=== PATIENT | female | born 1990 | race Caucasian/White ===

== ENCOUNTER 2019-07-15 10:10 | Outpatient (CLI) ==
[2019-07-15] MEDS ORDERED: NONE PER PT (10:42)
== END 2019-07-15 23:59 | disposition home or self-care (01) ==
LOC: STAR 10:10
PROVIDERS: ATTEND Obstetrics & Gynecology Maternal & Fetal Medicine
DX: Z02.9 Encounter for administrative examinations, unspecified (principal)

== ENCOUNTER 2019-07-20 05:51 | Day surgery (SDC) | payer OTHER ==
[~2019-07-20] VITALS: Ht 154.9 cm; Wt 62.0 kg
[~2019-07-20 05:51] MED LIST: NONE PER PT
[2019-07-20] MEDS ORDERED: LACTATED RINGERS 1,000 ML IV SCH (06:15)
[2019-07-20 06:40] LABS: HCG UR SG 1.018 (1.003-1.030)
[2019-07-20] MEDS ORDERED: BUPIVACAINE/PF 0.25% ONE (06:42)
[2019-07-20] MEDS ORDERED: EPINEPHRINE 1 MG/ML, 1ML ONE (06:42)
[2019-07-20] MEDS ORDERED: NEOSPORIN OINT, 15GM ONE (06:42)
[2019-07-20] MEDS ORDERED: ACETAMINOPHEN 500 MG TABLET PO ONE (07:00)
[2019-07-20] MEDS ORDERED: GABAPENTIN 300 MG CAPSULE PO ONE (07:00)
[2019-07-20] MEDS ORDERED: ROCURONIUM 10MG/ML,5ML ONE ×2 (07:04→07:59)
[2019-07-20] MEDS ORDERED: SODIUM CHLORIDE 0.9% PF 10ML ONE ×3 (07:04→08:12)
[2019-07-20] MEDS ORDERED: LIDOCAINE-MPF 2% ,5ML ONE (07:04)
[2019-07-20] MEDS ORDERED: PROPOFOL 10 MG/ML, 20ML ONE ×3 (07:04→08:05)
[2019-07-20] MEDS ORDERED: MIDAZOLAM 1 MG/ML, 2ML ONE (07:04)
[2019-07-20] MEDS ORDERED: DEXAMETHASONE 4 MG/ML, 1ML ONE ×6 (07:04→08:08)
[2019-07-20] MEDS ORDERED: FENTANYL PF 100 MCG/2ML ONE ×2 (07:04→08:26)
[2019-07-20] MEDS ORDERED: CEFAZOLIN 1,000 MG ONE ×6 (07:04→08:12)
[2019-07-20] MEDS ORDERED: SUCCINYLCHOLINE 20 MG/ML, 10ML ONE (07:04)
[2019-07-20] MEDS ORDERED: LIDOCAINE GEL 2%, 5ML ONE (07:11)
[2019-07-20] MEDS ORDERED: HYDROcodone/APAP 7.5-325MG/15ML UDC PO PRN (07:30)
[2019-07-20] MEDS ORDERED: EPHEDRINE 50 MG/ML, 1ML IVPush PRN (07:30)
[2019-07-20] MEDS ORDERED: PROMETHAZINE 25 MG/ML, 1ML IV PRN (07:30)
[2019-07-20] MEDS ORDERED: FENTANYL PF 100 MCG/2ML IV PRN (07:30)
[2019-07-20] MEDS ORDERED: HYDROmorphone 2 MG/ML, 1ML IVPush PRN (07:30)
[2019-07-20] MEDS ORDERED: MEPERIDINE/PF 25MG/ML,1ML IVPush PRN (07:30)
[2019-07-20] MEDS ORDERED: ONDANSETRON 2MG/ML, 2ML IV PRN (07:30)
[2019-07-20] MEDS ORDERED: hydrALAzine 20 MG/ML, 1ML IV PRN (07:30)
[2019-07-20] MEDS ORDERED: LABETALOL 5MG/ML, 20ML IV PRN (07:30)
[2019-07-20] MEDS ORDERED: KETOROLAC 30 MG/1 ML ONE (07:48)
[2019-07-20] MEDS ORDERED: ONDANSETRON 2MG/ML, 2ML ONE (08:09)
[2019-07-20] MEDS ORDERED: GLYCOPYRROLATE 0.2MG/1ML, 5ML ONE (08:10)
[2019-07-20] MEDS ORDERED: NEOSTIGMINE 1 MG/ML, 10ML ONE (08:10)
== END 2019-07-20 11:10 | disposition home or self-care (01) ==
LOC: OUT 05:51
PROVIDERS: ATTEND Obstetrics & Gynecology Maternal & Fetal Medicine
DX: Z30.2 Encounter for sterilization (principal); Z30.432 Encounter for removal of intrauterine contraceptive device
CPT/HCPCS: 58301; 58670; 81025; 88302; J0171; J0330; J0690; J1100; J1885; J2250; J2405; J2704; J2710; J3010; J3490; J7120; 88305